=== PATIENT | female | born 1975 | race Two or more races ===

== ENCOUNTER → 2024-06-10 | Outpatient (CLI) | payer MEDICAID, SELFPAY ==
--- NOTE | 2024-06-10 08:30 | XR_ITS ---
Examination: Screening digital mammography, bilateral Computer aided detection 3-D breast Tomosynthesis, bilateral Date and time of exam: June 10, 2024 0813 hours Compared to mammograms dating to April 29, 2018 Indication: Screening Technique: Nonmagnified MLO, CC views of the breasts to been obtained, reconstructed from 3-D Tomosynthesis images. R2 computer aided detection program utilized for evaluation of suspicious masses and/or abnormal calcifications. 3-D Tomosynthesis images obtained. Findings: The breasts are heterogeneously dense, which may obscure small masses Benign calcifications. No interval suspicious masses Impression: BI-RADS category II: Benign Findings. Recommend 1 year follow-up mammogram.
== END | disposition home or self-care (01) ==
PROVIDERS: PCP Physician Assistant; Referring Provider Physician Assistant; Visit Provider Physician Assistant
DX: Z12.31 Encounter for screening mammogram for malignant neoplasm of breast (principal); R92.323 Mammographic fibroglandular density, bilateral breasts; R92.1 Mammographic calcification found on diagnostic imaging of breast
CPT/HCPCS: 77063; 77067

== ENCOUNTER → 2024-12-24 | Outpatient (CLI) | payer MEDICAID, SELFPAY ==
--- NOTE | 2024-12-24 16:00 | XR_ITS ---
Examination: Breast ultrasound, unilateral, right complete Date and time of exam: December 1632 hours INDICATIONS: Mammogram March 27, 2024 focal asymmetry 12:00 position right breast Technique: Real-time pelaez scale ultrasonographic imaging performed right breast including all 4 quadrants as well as nipple retroareolar and axillary region. Findings: No cystic or solid mass Retroareolar dilated ducts IMPRESSION: BI-RADS Category 2: Benign findings
== END | disposition home or self-care (01) ==
LOC: CDIM 16:17
PROVIDERS: Referring Provider Physician Assistant; Visit Provider Physician Assistant
DX: N64.89 Other specified disorders of breast (principal)
CPT/HCPCS: 76641

== ENCOUNTER → 2025-02-15 | Outpatient (CLI) | payer MEDICAID, SELFPAY ==
--- NOTE | 2025-02-15 16:15 | XR_ITS ---
Examination: Pelvic ultrasound, transabdominal, complete Technique: Transabdominal ultrasound of the pelvis performed using grayscale imaging Date and time of exam: February 15, 2025, 1547 hrs. Indications: Irregular heavy menses 6 months Findings: Uterus 10.1 cm endometrial stripe 18 mm Endometrial hyperechoic mass 17 x 15 x 20 mm Right ovary 3.8 cm arterial flow 15 mm 18 mm follicular cyst. Left ovary obscured by bowel gas Impression: Thickened endometrium, endometrial hyperechoic mass 17 x 15 x 20 mm, differential would include early endometrial carcinoma, recommend MRI pelvis follow-up pre and post intravenous contrast
== END | disposition home or self-care (01) ==
LOC: CDIM 15:38
PROVIDERS: Referring Provider Physician Assistant; Visit Provider Physician Assistant
DX: R93.89 Abnormal findings on diagnostic imaging of other specified body structures (principal); R19.09 Other intra-abdominal and pelvic swelling, mass and lump
CPT/HCPCS: 76856

== ENCOUNTER → 2025-03-17 | Outpatient (CLI) | payer MEDICAID, SELFPAY ==
--- NOTE | 2025-03-17 14:30 | XR_ITS ---
Examination: Abdomen sonogram, complete Date and time of exam: March 17, 2025, 1416 hours INDICATIONS: Right upper abdominal pain beginning 2 years ago.. Technique: Multiple real-time grayscale transabdominal sonographic images of the abdomen have been obtained. Findings: Normal gallbladder Normal common bile duct 0.3 cm Pancreatic head 1.3 cm Aorta not enlarged. Liver 15.7 cm 16 mm left lobe liver cyst Normal hepatopetal portal venous flow Patent IVC Right kidney 10.3 cm renal cortex 1.7 cm Left kidney 10.6 cm renal cortex 2.4 cm Mild renal scarring Spleen 9.4 cm IMPRESSION: Normal gallbladder Normal common bile duct
== END | disposition home or self-care (01) ==
PROVIDERS: PCP Physician Assistant; Referring Provider Physician Assistant; Visit Provider Physician Assistant
DX: R10.84 Generalized abdominal pain (principal)
CPT/HCPCS: 76700

== ENCOUNTER → 2025-03-22 | Outpatient (CLI) | payer MEDICAID, SELFPAY ==
[2025-03-19 09:58] LABS: HCG Qualitative,Urine Negative
--- NOTE | 2025-03-22 17:00 | XR_ITS ---
Examination: MRI pelvis with intravenous contrast. MRI pelvis without intravenous contrast. Date and time of exam: March 22, 2025, 1700 hours INDICATIONS: Heavy vaginal bleeding beginning July 2024, pelvic sonogram February 15, 2025 thickened endometrium endometrial mass 17 x 15 x 20 mm Technique: Multiple axial, sagittal and coronal sections of the pelvis obtained. Transverse images, TR 6020, TE 107. T1 weighted transverse images, TR 582, TE 9.5. T2-weighted sagittal images, TR 4000, TE 105. T2-weighted sagittal images, TR 4000, TE 5. Coronal images, TR 4210, TE 107. Axial and coronal images are obtained post 14 cc intravenous injection, gadolinium. Findings: Anteverted uterus, irregular contour at the fundus, thickened endometrial stripe 18 mm, the uterus measures 10 x 4.5 x 5.0 cm Postcontrast images demonstrate nonenhancing mass in the endometrium, 8 x 10 mm Right adnexal follicular type cyst, 20 mm, 6 mm No free fluid in the pelvis Osseous structures intact No pelvic lymphadenopathy IMPRESSION: Abnormal thickened endometrial stripe 18 mm with nonenhancing mass in the endometrium 10 x 8 mm, differential would include early malignant neoplasm of the endometrium Recommend repeat transvaginal pelvic sonography with a radiologist in attendance
== END | disposition home or self-care (01) ==
LOC: SMRI 16:15
PROVIDERS: PCP Physician Assistant; Referring Provider Physician Assistant; Visit Provider Physician Assistant
DX: R93.89 Abnormal findings on diagnostic imaging of other specified body structures (principal); Z32.00 Encounter for pregnancy test, result unknown
CPT/HCPCS: 72197; 81025; A9577